=== PATIENT | male | born 1955 | race Caucasian/White ===

== ENCOUNTER → 2020-04-18 | Outpatient (CLI) | payer MEDICARE | LOC: RAD 14:58 | PROVIDERS: ATTEND Internal Medicine | DX: Z13.6 Encounter for screening for cardiovascular disorders (principal); Z53.8 Procedure and treatment not carried out for other reasons ==

== ENCOUNTER → 2020-04-18 | Outpatient (CLI) | payer MEDICARE ==
--- NOTE | 2020-04-18 17:04 | Diagnostic Imaging Report ---
CT Lung Screening INDICATION: [id number] history of smoking. TECHNIQUE: Noncontrast, low-dose CT imaging performed according to the lung cancer screening protocol. Auto Exposure Controls were utilize during the CT exam to meet ALARA standards for radiation dose reduction. COMPARISON: None. FINDINGS: Evaluation of the lung adler demonstrates no suspicious pulmonary nodule or mass. There is no focal consolidation, large effusion, nor pneumothorax. Cardiomediastinal structures show normal heart size. There is no large pericardial effusion. There is mild scattered calcified aortic and moderate calcified coronary atherosclerotic disease. No pathologically enlarged or morphologically abnormal adenopathy is seen within the mediastinum, nany, nor axilla on this noncontrast exam. Osseous structures show age-related degenerative changes. No lytic or blastic bony lesions are seen. Included portions of the upper abdomen show no additional acute abnormalities. IMPRESSION: 1. No suspicious pulmonary nodule or mass. Continued follow-up with annual low-dose CT chest is recommended. 2. Moderate calcified coronary atherosclerotic disease. LUNG-RADS CATEGORY: 1. MODIFIER: None. OTHER SIGNIFICANT FINDINGS: As above. Dictated by: Dictated on workstation # [id number]
== END ==
LOC: RAD 15:45
PROVIDERS: ATTEND Internal Medicine
DX: Z12.2 Encounter for screening for malignant neoplasm of respiratory organs (principal); I25.10 Atherosclerotic heart disease of native coronary artery without angina pectoris; F17.210 Nicotine dependence, cigarettes, uncomplicated
CPT/HCPCS: 71271